=== PATIENT | female | born 1975 | race American Indian/Alaskan Native ===

== ENCOUNTER 2017-01-10 16:29 | Emergency (ER) | payer BC, OTHER ==
[2017-01-10] MEDS ORDERED: Sodium Chloride 0.9% 1,000 ML IV STA (17:38)
[2017-01-10] MEDS ORDERED: Sodium Chloride 0.9% 1,000 ML ONE (18:08)
--- NOTE | 2017-01-10 18:08 | C.PDOC ---
History Of Present Illness <Dea Pelletier - Last Filed: 01/10/17 19:11> <Diana Zuniga - Last Filed: 01/10/17 20:23> 41 yr old female presents to the ER stating she has not felt well for the past 1 week. States she had some bloating and discomfort in the lower abdomen and yesterday had pain in upper abdomen with nausea. Patient denies travel, sick contact, fever, chest pain, SOB, vomiting, diarrhea, dysuria, weakness or numbness. (Dea Pelletier) History Per: Patient History/Exam Limitations: no limitations Onset/Duration Of Symptoms: Days (1 week) <Dea Pelletier - Last Filed: 01/10/17 19:11> <Diana Zuniga - Last Filed: 01/10/17 20:23> Time Seen by Provider: 01/10/17 17:11 Chief Complaint (Nursing): Abdominal Pain Past Medical History Reviewed: Historical Data, Nursing Documentation, Vital Signs Family History: States: No Known Family Hx - Social History Hx Tobacco Use: Yes Hx Alcohol Use: No Hx Substance Use: No - Immunization History Hx Tetanus Toxoid Vaccination: Yes Hx Influenza Vaccination: No Hx Pneumococcal Vaccination: No <Dea Pelletier - Last Filed: 01/10/17 19:11> Review Of Systems Except As Marked, All Systems Reviewed And Found Negative. Constitutional: Negative for: Fever Cardiovascular: Negative for: Chest Pain Respiratory: Negative for: Shortness of Breath Gastrointestinal: Positive for: Nausea, Abdominal Pain (Lower and upper abdomin ). Negative for: Vomiting Genitourinary: Negative for: Dysuria Neurological: Negative for: Weakness, Numbness <Dea Pelletier - Last Filed: 01/10/17 19:11> Physical Exam - Physical Exam Appears: Well, Non-toxic, No Acute Distress Skin: Warm, Dry Head: Atraumatic, Normacephalic Eye(s): bilateral: Normal Inspection, PERRL, EOMI Neck: Supple, Other ((+) Are of swelling, thyroid anterior neck) Chest: Symmetrical, No Tenderness Cardiovascular: Rhythm Regular, No Murmur Respiratory: Normal Breath Sounds, No Rales, No Rhonchi, No Wheezing Gastrointestinal/Abdominal: Soft, Tenderness (Epigastric and RUQ tenderness. ), No Guarding, No Rebound Extremity: Normal ROM, No Swelling Neurological/Psych: Oriented x3, Normal Speech, Normal Motor <Dea Pelletier - Last Filed: 01/10/17 19:11> ED Course And Treatment - Laboratory Results Result Diagrams: 01/10/17 18:11 01/10/17 18:11 O2 Sat by Pulse Oximetry: 98 <BorakamarDea - Last Filed: 01/10/17 19:11> - Laboratory Results Result Diagrams: 01/10/17 18:11 01/10/17 18:11 <Diana Zuniga - Last Filed: 01/10/17 20:23> Medical Decision Making <PrabhuDea - Last Filed: 01/10/17 19:11> <EfrainValdi - Last Filed: 01/10/17 20:23> Medical Decision Making: PLAN: * US - Abdomen * CBC * CMP * HCG * Urinalysis * Protonic IVP * Zofran IVP * Sodium Chloride IV (PrabhuDea) Disposition - Disposition Disposition Time: 19:11 <Dea Pelletier - Last Filed: 01/10/17 19:11> Counseled Patient/Family Regarding: Studies Performed, Diagnosis, Need For Followup <DwightdanielaInesmarley - Last Filed: 01/10/17 20:23> - Disposition Referrals: Earline Dee MD [Medical Doctor] - Disposition: HOME/ ROUTINE Condition: FAIR Prescriptions: Pantoprazole Sodium [Protonix] 20 mg PO DAILY #14 tablet.dr Instructions: Abdominal Pain (ED), Gas and Bloating (ED) - Clinical Impression Clinical Impression: Abdominal pain - 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 - Scribe Statement The provider has reviewed the documentation as recorded by the Scribe <Dea Pelletier - Last Filed: 01/10/17 19:11> <Diana Zuniga - Last Filed: 01/10/17 20:23> - Scribe Statement Nathalia Katz All medical record entries made by the Scribe were at my direction and personally dictated by me. I have reviewed the chart and agree that the record accurately reflects my personal performance of the history, physical exam, medical decision making, and the department course for this patient. I have also personally directed, reviewed, and agree with the discharge instructions and disposition. (Dea Pelletier) Physician Patient Turnover Patient Signed Over To: Diana Zuniga Handoff Comments: Pending abdominal US and dispo <Dea Pelletier - Last Filed: 01/10/17 19:11>
[2017-01-10 18:14] LABS: BASO # 0.1 K/uL (0.0-0.2); BASO % 0.7 % (0.0-2.0); EOS # 0.2 K/uL (0.0-0.7); EOS % 2.5 % (0.0-4.0); HEMATOCRIT 35.7 % (34.0-47.0); LYMPH # 2.2 K/uL (1.0-4.3); LYMPH % 25.9 % (20.0-40.0); MEAN CELL VOLUME 93.8 fL (81.0-99.0); MEAN CORPUSCULAR HEMOGLOBIN 30.7 pg (27.0-31.0); MEAN CORPUSCULAR HGB CONC 32.7 g/dL (33.0-37.0); MEAN PLATELET VOLUME 8.4 fL (7.2-11.7); MONO # 0.6 K/uL (0.0-0.8); MONO % 7.2 % (0.0-10.0); RED CELL DISTRIBUTION WIDTH 13.7 % (11.5-14.5); WHITE BLOOD COUNT 8.6 K/uL (4.8-10.8)
[2017-01-10 18:22] LABS: CHLORIDE 100 mmol/L (98-107); SODIUM 137 mmol/L (132-148)
[2017-01-10 18:24] LABS: ALB/GLOB RATIO 1.7 (1.0-2.1); AST/SGOT 21 U/L (14-36); BILIRUBIN,TOTAL 0.6 mg/dL (0.2-1.3); CARBON DIOXIDE 27 mmol/L (22-30); GFR AFRICAN-AMERICAN > 60; TOTAL PROTEIN 7.3 g/dL (6.3-8.3)
[2017-01-10 18:25] LABS: ALKALINE PHOSPHATASE 48 U/L (38-126); ALT/SGPT 33 U/L (9-52); BLOOD UREA NITROGEN 15 mg/dL (7-17); CALCIUM 8.8 mg/dl (8.6-10.4); GLUCOSE,RANDOM 82 mg/dL (65-105)
[2017-01-10 18:34] LABS: RBC URINE 2 /hpf (0-3); URINE BILIRUBIN NEGATIVE (NEGATIVE); URINE BLOOD NEGATIVE (NEGATIVE); URINE COLOR Yellow (YELLOW); URINE GLUCOSE (UA) NORMAL (Normal); URINE KETONE NEGATIVE (NEGATIVE); URINE LEUKOCYTE ESTERASE TRACE Leu/uL (Negative); URINE PROTEIN NEGATIVE (NEGATIVE); WBC URINE 9 /hpf (0-5)
[2017-01-10 20:20] VITALS: BP 106/64; PULSE 67; RESP 17; TEMP 98.1; O2SAT 100
--- NOTE | 2017-01-11 10:00 | US ---
HISTORY: epigastric and RUQ abd pain COMPARISON: None. TECHNIQUE: Sonographic evaluation of the right upper quadrant of the abdomen. FINDINGS: LIVER: Measures 15.5 cm in length. Normal echogenicity of the liver parenchyma. No mass. No intrahepatic bile duct dilatation. Normal hepatopetal portal venous flow. GALLBLADDER: Unremarkable. No gallstones. COMMON BILE DUCT: Measures 3 mm. No stones. No dilatation. PANCREAS: Unremarkable as visualized. No mass. No ductal dilatation. RIGHT KIDNEY: Measures 10.8 cm in length. Normal echogenicity. No calculus, mass, or hydronephrosis. AORTA: No aneurysmal dilatation. IVC: Unremarkable. OTHER FINDINGS: None . IMPRESSION: Unremarkable abdominal ultrasound examination. Preliminary interpretation of this examination was reported by [facility] at 8:18 p.m. on 01/10/2017. There is concurrence of this report with the preliminary interpretation.
== END 2017-01-10 20:36 | disposition home or self-care (01) ==
LOC: C.ER 16:29
DX: R10.13 Epigastric pain (principal); R10.11 Right upper quadrant pain; R14.0 Abdominal distension (gaseous)
CPT/HCPCS: 76705; 80053; 81001; 83690; 84703; 85025; 96374; 96375; 99285; C9113; J2405; J7040

== ENCOUNTER 2018-09-28 02:01 | Emergency (ER) | payer OTHER ==
[2018-09-28 02:20] VITALS: TEMP 98.2
[2018-09-28] MEDS ORDERED: Sodium Chloride 0.9% 1,000 ML IV STA (02:56)
[2018-09-28] MEDS ORDERED: Sodium Chloride 0.9% 1,000 ML ONE (03:11)
[2018-09-28 03:22] LABS: BASO # 0.1 K/uL (0.0-0.2); BASO % 0.6 % (0.0-2.0); EOS # 0.2 K/uL (0.0-0.7); EOS % 2.2 % (0.0-4.0); HEMOGLOBIN 12.3 g/dL (11.0-16.0); LYMPH # 2.1 K/uL (1.0-4.3); LYMPH % 20.7 % (20.0-40.0); MEAN CELL VOLUME 94.4 fL (81.0-99.0); MEAN CORPUSCULAR HEMOGLOBIN 31.6 pg (27.0-31.0); MEAN CORPUSCULAR HGB CONC 33.5 g/dL (33.0-37.0); MEAN PLATELET VOLUME 8.8 fL (7.2-11.7); MONO # 0.7 K/uL (0.0-0.8); MONO % 6.5 % (0.0-10.0); NEUT # 7.2 K/uL (1.8-7.0); NRBC % 0.1 % (0.0-2.0); RBC 3.89 Mil/uL (3.80-5.20); RED CELL DISTRIBUTION WIDTH 13.6 % (11.5-14.5); WHITE BLOOD COUNT 10.3 K/uL (4.8-10.8)
[2018-09-28 03:24] LABS: HCG,QUALITATIVE URINE NEGATIVE (NEGATIVE)
[2018-09-28 03:29] LABS: URINE BILIRUBIN NEGATIVE (NEGATIVE); URINE BLOOD NEGATIVE (NEGATIVE); URINE CLARITY Clear (Clear); URINE COLOR Straw (YELLOW); URINE GLUCOSE (UA) NORMAL (Normal); URINE LEUKOCYTE ESTERASE NEG Leu/uL (Negative); URINE PROTEIN NEGATIVE (NEGATIVE); URINE UROBILINOGEN NORMAL mg/dL (0.2-1.0)
[2018-09-28] MEDS ORDERED: Iodixanol 320 mg/ml 150 ml Bottle IV ONE (03:31)
[2018-09-28 03:34] LABS: ALB/GLOB RATIO 1.7 (1.0-2.1); ALBUMIN 4.6 g/dL (3.5-5.0); BLOOD UREA NITROGEN 16 mg/dL (7-17); CALCIUM 9.4 mg/dl (8.6-10.4); GFR NON-AFRICAN AMERICAN 60; LIPASE 122 U/L (23-300)
[2018-09-28 03:35] LABS: ALT/SGPT 11 U/L (9-52); AST/SGOT 19 U/L (14-36)
--- NOTE | 2018-09-28 03:46 | C.PDOC ---
History Of Present Illness 43 year old female, whose PMHx includes fibroids, presents to the ED for evaluation of right lower quadrant abdominal pain associated with nausea which began tonight. Patient states her pain is sharp and "feels like contractions." She states her pain was initially constant, but is not recurring every few minutes. She states her pain is worse with laying down and denies fever, chills, vomiting, vaginal bleeding, or radiation of pain elsewhere. Time Seen by Provider: 09/28/18 02:42 Chief Complaint (Nursing): Abdominal Pain History Per: Patient History/Exam Limitations: no limitations Onset/Duration Of Symptoms: Hrs Current Symptoms Are (Timing): Better Quality Of Discomfort: "Pain" Associated Symptoms: Nausea. denies: Fever, Chills, Vomiting Exacerbating Factors: Other (laying down ) Additional History Per: Patient Abnormal Vaginal Bleeding: No Past Medical History Reviewed: Historical Data, Nursing Documentation, Vital Signs Vital Signs: Last Vital Signs Temp 98.2 F 09/28/18 02:15 Pulse 77 09/28/18 02:15 Resp 16 09/28/18 02:15 BP 128/83 09/28/18 02:15 Pulse Ox 100 09/28/18 02:15 - Medical History PMH: Anemia (Iron Defficiency) Surgical History: No Surg Hx - [facility] CLOSURE SKIN & SUBCUTANEOUS NEC (12/08/14) Family History: States: Unknown Family Hx - Social History Hx Tobacco Use: Yes Hx Alcohol Use: No Hx Substance Use: No - Immunization History Hx Tetanus Toxoid Vaccination: Yes Hx Influenza Vaccination: No Hx Pneumococcal Vaccination: No Review Of Systems Except As Marked, All Systems Reviewed And Found Negative. Gastrointestinal: Negative for: Vomiting Genitourinary: Negative for: Vaginal Bleeding Physical Exam - Physical Exam Additional Physical Exam Comments: Constitutional: No acute distress. Uncomfortable secondary to pain. Head: Normocephalic. Atraumatic. Eyes: PERRL. ENT: Moist mucous membranes. Neck: Supple. Cardiovascular: Regular rate. Radial pulse 2+ bilaterally. Chest: No tenderness. Respiratory: Clear to auscultation bilaterally. GI: Soft. Right lower quadrant tenderness. Positive McBurney's point tenderness. Back: No CVA tenderness. Musculoskeletal: No tenderness or swelling of extremities. Skin: No rash. Neurologic: Alert, no focal deficit. ED Course And Treatment - Laboratory Results Result Diagrams: 09/28/18 03:19 09/28/18 03:19 Lab Results: Total Bilirubin 0.4 mg/dL (0.2-1.3) 09/28/18 03:19 AST 19 U/L (14-36) 09/28/18 03:19 ALT 11 U/L (9-52) 09/28/18 03:19 Alkaline Phosphatase 55 U/L (38-126) 09/28/18 03:19 Total Protein 7.2 g/dL (6.3-8.3) 09/28/18 03:19 Albumin 4.6 g/dL (3.5-5.0) 09/28/18 03:19 Globulin 2.7 gm/dL (2.2-3.9) 09/28/18 03:19 Albumin/Globulin Ratio 1.7 (1.0-2.1) 09/28/18 03:19 Lipase 122 U/L (23-300) 09/28/18 03:19 Urine Color Straw (YELLOW) 09/28/18 03:19 Urine Clarity Clear (Clear) 09/28/18 03:19 Urine pH 6.0 (5.0-8.0) 09/28/18 03:19 Ur Specific Lyman 1.003 (1.003-1.030) 09/28/18 03:19 Urine Protein Negative mg/dL (NEGATIVE) 09/28/18 03:19 Urine Glucose (UA) Normal mg/dL (Normal) 09/28/18 03:19 Urine Ketones Negative mg/dL (NEGATIVE) 09/28/18 03:19 Urine Blood Negative (NEGATIVE) 09/28/18 03:19 Urine Nitrate Negative (NEGATIVE) 09/28/18 03:19 Urine Bilirubin Negative (NEGATIVE) 09/28/18 03:19 Urine Urobilinogen Normal mg/dL (0.2-1.0) 09/28/18 03:19 Ur Leukocyte Esterase Neg Madelin/uL (Negative) 09/28/18 03:19 Urine WBC (Auto) < 1 /hpf (0-5) 09/28/18 03:19 Urine RBC (Auto) < 1 /hpf (0-3) 09/28/18 03:19 Urine HCG, Qual Negative (NEGATIVE) 09/28/18 03:19 Urine HCG, Qual Negative (NEGATIVE) 09/28/18 03:19 O2 Sat by Pulse Oximetry: 100 (on RA) Pulse Ox Interpretation: Normal Medical Decision Making Medical Decision Making: Progress: Bloodwork, urinalysis, CT A/P ordered and reviewed. Tylenol PO and IV Fluids given. CT A/P IMPRESSION: Mild diffuse thickening of the bladder. Underdistention versus mild cystitis. Enlarged uterus with multiple fibroids the largest measuring 6.2 cm. Mild amount of free pelvic fluid. 2.4 cm right ovarian cyst. Disposition - Disposition Referrals: Earline Dee MD [Medical Doctor] - Disposition: HOME/ ROUTINE Disposition Time: 04:36 Condition: STABLE Instructions: Ovarian Cysts Forms: [facility] ([place]), Work Excuse - Clinical Impression Clinical Impression: Ovarian cyst - Scribe Statement The provider has reviewed the documentation as recorded by the Scribe (Desi Ulloa) Provider Attestation: All medical record entries made by the Scribe were at my direction and personally dictated by me. I have reviewed the chart and agree that the record accurately reflects my personal performance of the history, physical exam, medical decision making, and the department course for this patient. I have also personally directed, reviewed, and agree with the discharge instructions and disposition.
[2018-09-28 05:12] VITALS: BP 121/63; PULSE 82; RESP 20; O2SAT 99
--- NOTE | 2018-09-28 17:43 | CT ---
Date of service: 09/28/2018 PROCEDURE: CT Abdomen and Pelvis with contrast HISTORY: RLQ tenderness COMPARISON: None. TECHNIQUE: Contrast dose: 100 mL Visipaque 320 Radiation dose: Total exam DLP = 354.68 mGy-cm. This CT exam was performed using one or more of the following dose reduction techniques: Automated exposure control, adjustment of the mA and/or kV according to patient size, and/or use of iterative reconstruction technique. FINDINGS: LOWER THORAX: Unremarkable. LIVER: Unremarkable. No gross lesion or ductal dilatation. GALLBLADDER AND BILE DUCTS: Unremarkable. PANCREAS: Unremarkable. No gross lesion or ductal dilatation. SPLEEN: Unremarkable. ADRENALS: Unremarkable. No mass. KIDNEYS AND URETERS: Unremarkable. No hydronephrosis. No solid mass. VASCULATURE: Unremarkable. No aortic aneurysm. No aortic atherosclerotic calcification or mural plaque present. BOWEL: Unremarkable. No obstruction. No gross mural thickening. APPENDIX: Normal appendix. PERITONEUM: Minimal fluid in cul-de-sac. LYMPH NODES: Unremarkable. No enlarged lymph nodes. BLADDER: Unremarkable. REPRODUCTIVE: Uterus significant for 1 or several left fundal masses up to 5.9 cm conglomerate leak. Central low attenuation. Possible necrotic fibroids. Correlate with pelvic ultrasound examination. Incidental 2.1 cm right ovarian cyst. BONES: No acute fracture. OTHER FINDINGS: None. IMPRESSION: Possible left fundal uterine fibroids. Correlate with pelvic ultrasound examination. 2.1 cm right ovarian cyst. Small amount of fluid in cul-de-sac. No other significant abnormality. The preliminary findings for this examination were reported by [facility] at 4:30 a.m. on 09/28/2018. There is concurrence of this report with the preliminary findings.
== END 2018-09-28 05:12 | disposition home or self-care (01) ==
LOC: C.ER 02:01
DX: N83.201 Unspecified ovarian cyst, right side (principal)
CPT/HCPCS: 74177; 80053; 81001; 83690; 84703; 85025; 87086; 96360; 99283; J7030; Q9967